=== PATIENT | male | born 1935 | race Caucasian/White ===

== ENCOUNTER → 2016-06-15 | Outpatient (CLI) | payer OTHER, BC ==
[~2016-06-15] MED LIST: ASPEC81 PO; ATOR-24 PO; DRV100 PO; GLC500 PO; LISI-725 PO
[2016-06-15 13:54] LABS: BLOOD UREA NITROGEN 24 mg/dl (7-18); BUN/CREATININE RATIO 19.8 (10-20); CARBON DIOXIDE 28 mmol/L (21-32); CHLORIDE 102 mmol/L (98-107); CHOLESTEROL 171 mg/dl (0-200); GLUCOSE 97 mg/dl (70-99); POTASSIUM 4.1 mmol/L (3.5-5.1); SODIUM 140 mmol/L (136-145)
[2016-06-15 14:00] LABS: HDL CHOLESTEROL 43 mg/dl; TRIGLYCERIDES 206 mg/dl (0-150); VERY LOW DENSITY LIPOPROT CALC 41 mg/dl
[2016-06-15 14:04] LABS: ESTIMATED AVERAGE GLUCOSE 140 mg/dl; HA1C FLAG Normal (Normal)
[2016-06-15 14:26] LABS: RATIO 12.3 mcg/mg (0-30.0)
--- NOTE | 2016-06-17 06:38 | CODING QUERY NO DIAGNOSIS ---
TREATMENT RENDERED WITHOUT A DIAGNOSIS To promote full compliance with coding requirements relating to patient care, physician participation is requested in all cases of wool buyer uncertainty. Please assist us with providing a diagnosis/symptom for the test(s) below: A diagnosis/symptom was not documented on your Order. A valid diagnosis/symptom is required to bill all insurances. Please remember that we are unable to code a diagnosis of rule out, probable, possible, questionable, or suspected. Tests that require a diagnosis: DOS: 06/15/16 * HEMOGLOBIN A1C DIAGNOSIS: * LDL DIRECT DIAGNOSIS: * LIPID PROFILE DIAGNOSIS: * PRP DIAGNOSIS: * MICROALBUM/CREAT RATIO DIAGNOSIS: Provider Signature: Date: Thank you [employer] [employer] [facility] Information Management Once completed, please kindly fax back to [phone] For questions please call [phone]
== END | disposition home or self-care (01) ==
LOC: C.LABSPEC 12:30
PROVIDERS: ATTEND Internal Medicine
DX: I10 Essential (primary) hypertension (principal); E78.5 Hyperlipidemia, unspecified; E11.9 Type 2 diabetes mellitus without complications

== ENCOUNTER → 2016-10-15 | Outpatient (CLI) | payer OTHER, BC ==
[2016-10-15 13:28] LABS: ALKALINE PHOSPHATASE 82 U/L (45-117); ALT/SGPT 26 U/L (12-78); AST/SGOT 16 U/L (15-37); BLOOD UREA NITROGEN 23 mg/dl (7-18); BUN/CREATININE RATIO 19.2 (10-20); CARBON DIOXIDE 27 mmol/L (21-32); CHLORIDE 104 mmol/L (98-107); CHOLESTEROL 160 mg/dl (0-200); CHOLESTEROL/HDL RATIO 3.9; GLUCOSE 123 mg/dl (70-99); HDL CHOLESTEROL 41 mg/dl; POTASSIUM 4.6 mmol/L (3.5-5.1); SODIUM 140 mmol/L (136-145); TRIGLYCERIDES 166 mg/dl (0-150); VERY LOW DENSITY LIPOPROT CALC 33 mg/dl
[2016-10-15 13:41] LABS: ESTIMATED AVERAGE GLUCOSE 151 mg/dl; HA1C FLAG Normal (Normal)
[2016-10-15 18:19] LABS: CALCIUM 9.6 mg/dl (8.5-10.1)
== END | disposition home or self-care (01) ==
LOC: C.LABSPEC 12:14
PROVIDERS: ATTEND Internal Medicine
DX: E66.09 Other obesity due to excess calories (principal); I10 Essential (primary) hypertension; E11.9 Type 2 diabetes mellitus without complications

== ENCOUNTER → 2017-02-18 | Outpatient (CLI) | payer OTHER, BC ==
[2017-02-18 13:49] LABS: ALT/SGPT 21 U/L (12-78); AST/SGOT 14 U/L (15-37); BLOOD UREA NITROGEN 20 mg/dl (7-18); BUN/CREATININE RATIO 19.3 (10-20); CALCIUM 9.7 mg/dl (8.5-10.1); CARBON DIOXIDE 28 mmol/L (21-32); CHLORIDE 103 mmol/L (98-107); CHOLESTEROL 149 mg/dl (0-200); CREATININE 1.05 mg/dl (0.60-1.40); GLUCOSE 119 mg/dl (70-99); POTASSIUM 4.1 mmol/L (3.5-5.1); SODIUM 138 mmol/L (136-145); TRIGLYCERIDES 220 mg/dl (0-150); VERY LOW DENSITY LIPOPROT CALC 44 mg/dl
[2017-02-18 13:51] LABS: ALKALINE PHOSPHATASE 80 U/L (45-117); CHOLESTEROL/HDL RATIO 3.5; HDL CHOLESTEROL 42 mg/dl
[2017-02-18 13:56] LABS: ESTIMATED AVERAGE GLUCOSE 140 mg/dl; HA1C FLAG Normal (Normal)
== END | disposition home or self-care (01) ==
LOC: C.LABSPEC 12:26
PROVIDERS: ATTEND Internal Medicine
DX: Z00.00 Encounter for general adult medical examination without abnormal findings (principal); E78.5 Hyperlipidemia, unspecified; E11.9 Type 2 diabetes mellitus without complications; E66.09 Other obesity due to excess calories

== ENCOUNTER → 2017-08-16 | Outpatient (CLI) | payer OTHER, BC ==
[2017-08-16 13:27] LABS: HEMOGLOBIN A1C 6.3 % (4.5-5.6)
[2017-08-16 14:12] LABS: BLOOD UREA NITROGEN 30 mg/dl (7-18); CALCIUM 9.7 mg/dl (8.5-10.1); CARBON DIOXIDE 26 mmol/L (21-32); CHOLESTEROL 119 mg/dl (0-200); CREATININE 1.22 mg/dl (0.60-1.40); GLUCOSE 103 mg/dl (70-99); POTASSIUM 4.2 mmol/L (3.5-5.1); SODIUM 139 mmol/L (136-145)
[2017-08-16 14:17] LABS: LDL CHOLESTEROL (DIRECT) 72 mg/dl
== END | disposition home or self-care (01) ==
LOC: C.LABSPEC 13:05
PROVIDERS: ATTEND Internal Medicine
DX: E78.5 Hyperlipidemia, unspecified (principal); I10 Essential (primary) hypertension; E11.9 Type 2 diabetes mellitus without complications

== ENCOUNTER 2023-12-28 17:12 | Observation (INO) ==
--- NOTE | 2023-12-28 17:18 | ED Triage Note ---
Date of Service December 28, 2023 Provider in Triage Author: Niles Dolan History of Present Illness This patient was briefly evaluated while in triage. An abbreviated physical exam was performed. This patient is a 88-year-old Male who presents to the ED for evaluation was here for outpatient CT scan for jaw pain POC and lab creatine was noted to be elevated (2.2) which is apparently new for him glucose also noted to be in 50s, recheck in triage 68 the MD group ordering the study was notified, and they asked that he be evaluated in the ED Physical Exam GENERAL: NAD CARDIOVASCULAR: RRR RESPIRATORY: CTA ABDOMEN: BS x 4. Nontender to palpation. Initial orders for labs and / or imaging were placed and patient was placed in the waiting area until a bed is available. Please see further documentation for the full ED course.
[2023-12-28 17:58] LABS: Eosinophils # (auto) 0.06 K/uL (0.00-0.50); Eosinophils % (auto) 0.6 %; Hematocrit (blood only) 45.2 % (42.0-52.0); Hemoglobin 14.9 g/dl (14.0-18.0); Immature Granulocytes # (auto) 0.03 K/uL (0.01-0.20); Immature Granulocytes % (auto) 0.3 %; Lymphocytes # (auto) 1.39 K/uL (1.20-3.40); Lymphocytes % (auto) 14.4 %; Mean Corpuscular Hemoglobin 30.5 pg (25.0-34.0); Mean Corpuscular Volume 92.6 fL (80.0-100.0); Mean Platelet Volume 9.7 fL (9.4-12.4); Monocytes # (auto) 1.35 K/uL (0.11-0.59); Neutrophils # (auto) 6.74 K/uL (1.40-6.50); Neutrophils % (auto) 69.7 %; Platelet Count 281 K/uL (130-400); RDW Coefficient of Variation 13.1 % (11.5-14.5); Red Blood Count 4.88 M/uL (4.70-6.10); White Blood Count 9.67 K/ul (4.8-10.8)
[2023-12-28 18:17] LABS: Alanine Aminotransferase 14 U/L (7-52); Albumin Globulin Ratio 1.2 (0.9-2); Albumin Level 4.6 gm/dl (3.4-5.0); Alkaline Phosphatase 78 U/L (34-104); Anion Gap 14 (3-11); BUN Creatinine Ratio 20.1 (10-20); Bilirubin,Total 0.4 mg/dl (0.2-1.0); Blood Urea Nitrogen 45 mg/dl (6-23); Calcium 10.2 mg/dl (8.6-10.3); Carbon Dioxide 24 mmol/L (21-32); Chloride 97 mmol/L (98-107); Est GFR (African American) 29.7 ml/min; Est GFR (Non-African American) 25.6 ml/min; Globulin 3.7 gm/dl (2.5-4.0); Glucose 80 mg/dl (70-99(Fasting)); Sodium 135 mmol/L (136-145); Total Protein 8.3 gm/dl (6.0-8.3)
--- NOTE | 2023-12-28 19:13 | Emergency Department Note ---
Impression & Plan CARLY (acute kidney injury), Jaw pain, Acute dehydration, Hypomagnesemia ED Provider Note NAME: CHARBEL COLLAZO AGE: 88 SEX: M : 1935 ARRIVES VIA: Walk-In INFORMANT: [Patient] ED PROVIDER(S): [Gael Maddox MD] CHIEF COMPLAINT: Abnormal laboratories HISTORY OF PRESENT ILLNESS: The patient is an 88-year-old male who presents to the ER with abnormal creatinine values. The patient has had 3 days of anterior right jaw pain. He went to his doctor's office and a CT of the jaw was ordered. At CT, his creatinine was found to be high, this was far above his baseline, he was referred to the ER. The patient has not had flank pain or abdominal pain. No swelling of his legs. He does admit to decreased intake because of the jaw pain. No lightheadedness or dizziness. He is not short of breath. No fever. The patient does not believe his mouth, tongue or jaw appears swollen when looking in the mirror. PMHx/PSHx/Social Hx: See Below PHYSICAL EXAM: GENERAL: Patient is in no acute distress. HEENT: No acute trauma, normocephalic atraumatic, mucous membranes moist, no nasal congestion. Very poor dentition with multiple eroded teeth and cavities. Several teeth have already been removed. Patient does not have any swelling to the floor the mouth. He is sore to palpate the right anterior mandible. There is no abscess present by my exam. NECK: No stridor, no adenopathy, no meningismus, trachea is midline. LUNGS: Clear to auscultation bilaterally, no wheeze, no rhonchi, breath sounds equal. Breath sounds diminished bilaterally HEART: Without murmurs gallops or rubs, occasional extra beat heard. Regular rate ABDOMEN: Soft, nontender, no peritonitis. EXTREMITIES: No cyanosis, full range of motion of all the joints without pain or difficulty. NEUROLOGIC: Oriented x 3, no acute motor or sensory deficits, no focal weakness. SKIN: No jaundice, no diaphoresis. DIFFERENTIAL DIAGNOSIS: Acute renal failure, dehydration, renal obstruction, medication reaction, UTI, among others. EMERGENCY DEPARTMENT PROCEDURES: MEDICAL DECISION MAKING: There is no leukocytosis or concerning anemia. There is a normal platelet count. There is evidence for acute kidney injury/dehydration with a creatinine of 2.24. There is a subtle anion gap. Sodium slightly low at 135. Magnesium is low at 1.5. No worrisome liver enzyme elevation. Urinalysis result is pending. Abdominal and pelvis CT does not show any urinary obstruction or acute surgical process. ECG showed a sinus rhythm, no ischemia or dysrhythmia. On exam, the patient was not toxic, he was not febrile. He did not have abdominal or flank pain. There was no pedal edema. Clinically, I did not find any dental abscess across the lower jaw. There was no swelling to the floor of the mouth. The patient appears to have acute kidney injury/dehydration. This is likely result of poor intake as he has had a sore jaw and difficulty eating. Based on his exam, I suspect he has jaw pain from his poor dentition. The patient received a liter of IV saline for hydration. The patient is in need of a hospital stay given the acute kidney injury. He requires further hydration and electrolyte replacement. I did speak with the patient and case management. The on-call hospitalist was consulted. Prior/Outside records/notes reviewed: None ECG per my interpretation: Indication was abnormal laboratories. The ECG shows a sinus rhythm with some PACs. The rate is 85. There is no acute ST elevation, no PVCs. The QTc is 421. Continuous Cardiac Monitoring per my interpretation: An order was placed for continuous cardiac monitoring. The monitor shows a rate of 94 with sinus rhythm with PACs. Imaging/x-ray results per my interpretation: Chronic Medical/Social conditions affecting care: Advanced age. Care/Management discussed with: Case management, the on-call hospitalist. Level of care consideration(s): After review of the information above and other included data: --I believe the patient requires escalation of care to admission DISPOSITION: Admission Past Med/Surg History Problem List Hypomagnesemia (Acute) Acute dehydration (Acute) Jaw pain (Acute) CARLY (acute kidney injury) (Acute) Jaw pain CARLY (acute kidney injury) Medical History Hyperlipidemia Hypertension Diabetes Social History Smoking Status: Never smoker Hx Alcohol Use: No Hx Substance Use: No Preferred Language: Tajik Communication Ability: Effective Special Needs Teacher Required: No Beliefs That Will Affect Care: None Current Living Situation: Alone Current Living Situation Comment: resides at [facility]. Other Information That Helps Us Care for You: No Feels Safe at Home: Yes Safety Concerns: Feels Safe At This Time Assistive Devices: None Allergies Allergies Allergy/AdvReac Type Severity Reaction Status Date / Time pollen extracts Allergy Intermediate HAYFEVER Verified 12/28/23 20:51 SYMPTOMS Home Meds Home Medications Medication Instructions Recorded Confirmed acetaminophen 325 mg tablet 650 mg PO DIRECTED PRN 12/28/23 12/28/23 (Tylenol) PAIN/FEVER atorvastatin 40 mg tablet 40 mg PO DAILY 12/28/23 12/28/23 fluticasone propionate 50 2 spray intranasal DAILY 12/28/23 12/28/23 mcg/actuation nasal spray,suspension gemfibrozil 600 mg tablet 600 mg PO BID 12/28/23 12/28/23 glyburide 1.25 mg tablet 1.25 mg PO BID 12/28/23 12/28/23 lisinopril 20 mg tablet 20 mg PO DAILY 12/28/23 12/28/23 metformin 1,000 mg tablet 1,000 mg PO BID 12/28/23 12/28/23 metoprolol succinate 25 mg 25 mg PO DAILY 12/28/23 12/28/23 tablet,extended release 24 hr triamterene 37.5 0.5 tab PO DAILY 12/28/23 12/28/23 mg-hydrochlorothiazide 25 mg tablet Results & Data (ED) Vital Signs Vital Signs - 24 hr 12/28/23 17:17 12/28/23 19:45 Temperature 36.4 C L Temperature Source Oral Pulse Rate 85 Respiratory Rate 94 H 20 Respiratory Effort / Characteristics Non-Labored Spontaneous Respiratory Depth Normal Respiratory Pattern Regular Blood Pressure 110/65 Blood Pressure Mean 80 Pulse Oximetry 95 Oxygen Delivery Method Room Air Sepsis Recent Fever Within 48 Hours No Sepsis New/Unexplained Change in Mental Status N/A Sepsis Action Taken by Nursing No Action Required Home Medications Current Medication List: was personally reviewed by me Laboratory Data Attestation: I reviewed the patient's lab results. 12/28/23 Unknown 12/28/23 Unknown Lab Results 12/28/23 12/28/23 12/28/23 Range/Units 17:21 17:43 19:29 Potassium (3.5-5.1) mmol/L POC Glucose 68 L* 83 126 H (70-99) mg/dl Phosphorus (2.5-4.9) mg/dl Magnesium (1.7-2.4) mg/dl AST (13-39) U/L 12/28/23 Range/Units 19:35 Potassium 4.3 (3.5-5.1) mmol/L POC Glucose (70-99) mg/dl Phosphorus 3.3 (2.5-4.9) mg/dl Magnesium 1.5 L (1.7-2.4) mg/dl AST 18 (13-39) U/L Administered Medications Acetaminophen (Acetaminophen 325 Mg Tab) 650 mg PO Q4H PRN PRN Reason: Pain or Fever Stop: 01/27/24 22:34 Last Admin: 12/28/23 23:18 Dose: 650 mg Documented By: JEZ Lactated Ringer's (Lr) 1,000 mls @ 125 mls/hr IV .Q8H [facility] Stop: 12/29/23 14:59 Last Admin: 12/28/23 23:23 Dose: 125 mls/hr Documented By: JEZ Magnesium Sulfate/Dextrose (Magnesium Sulfate / D5w) 1 gm in 100 mls @ 50 mls/hr IV Q2H JULISSA Stop: 12/29/23 03:14 Last Admin: 12/29/23 01:10 Dose: 50 mls/hr Documented By: Infusion: 12/29/23 01:10 Dose: Infused Documented By: Admin: 12/28/23 23:26 Dose: 50 mls/hr Documented By: JEZ Discontinued Medications Sodium Chloride (Nss) 1,000 mls @ 999 mls/hr IV .Q1H1M ONE Stop: 12/28/23 19:58 Last Infusion: 12/28/23 20:57 Dose: Infused Documented By: Admin: 12/28/23 19:34 Dose: 999 mls/hr Documented By: RED Imaging Data Radiologist's Impression: Abdomen/Pelvis CT 12/28/23 18:50 Exam(s): CT ABDOMEN + PELVIS Without Contrast EXAM: CT Abdomen and Pelvis Without Intravenous Contrast CLINICAL HISTORY: Reason for exam: Possible urinary obstruction. TECHNIQUE: Axial computed tomography images of the abdomen and pelvis without intravenous contrast. CTDI is 26 mGy and DLP is 1177 mGy-cm. Automated exposure control was utilized for the study. A dose lowering technique was utilized adhering to the principles of ALARA. COMPARISON: No relevant prior studies available. FINDINGS: Lung bases: Unremarkable. No mass. No consolidation. ABDOMEN: Liver: Unremarkable. Gallbladder and bile ducts: There is a 6 mm calcific gallstone in the dependent portion of the gallbladder. No wall thickening or surrounding inflammation is visible. No biliary duct dilation or choledocholithiasis. Pancreas: Unremarkable. No ductal dilation. Spleen: Unremarkable. No splenomegaly. Adrenals: Unremarkable. No mass. Kidneys and ureters: Slight perinephric stranding around both kidneys is nonspecific but can be seen in renal insufficiency. The kidneys are otherwise unremarkable. No hydronephrosis or ureterolithiasis is seen. Stomach and bowel: Unremarkable. No obstruction. No mucosal thickening. PELVIS: Appendix: The appendix is normal. Bowel loops are nondilated. No acute inflammatory changes are seen involving the bowel. Bladder: The urinary bladder is only partially distended but unremarkable. No stones. Reproductive: Unremarkable as visualized. ABDOMEN and PELVIS: Intraperitoneal space: Unremarkable. No free air. No significant fluid collection. Bones/joints: Mild osteoarthritic changes in both hips. Mild multilevel degenerative changes throughout the spine. There are chronic bilateral pars defects at L5 without spondylolisthesis. No acute fracture or subluxation is seen. Soft tissues: Unremarkable. Vasculature: The abdominal aorta is heavily calcified but nondilated. Lymph nodes: Unremarkable. No enlarged lymph nodes. IMPRESSION: 1. Slight perinephric stranding around both kidneys is nonspecific but can be seen in renal insufficiency. The kidneys are otherwise unremarkable. No hydronephrosis or ureterolithiasis is seen. 2. The appendix is normal. Bowel loops are nondilated. No acute inflammatory changes are seen involving the bowel. 3. There is a 6 mm calcific gallstone in the dependent portion of the gallbladder. No wall thickening or surrounding inflammation is visible. No biliary duct dilation or choledocholithiasis. Electronically signed by: Cuong Min MD 12/28/23 20:11 PM Discharge Plan Visit Data Chief Complaint: Abnormal Labs/Diagnostic Testing Stated Complaint: ABN LABS/HIGH CREATINE ED Provider: Gael Maddox Discharge Problem: CARLY (acute kidney injury), Jaw pain, Acute dehydration, Hypomagnesemia Patient Disposition: Admitted As Inpatient Condition: Good
[2023-12-28] MEDS: SODIUM CHLORIDE 0.9% 1,000 ML IV ONE (19:34)
--- NOTE | 2023-12-28 19:49 | History & Physical Report ---
Date of Service December 28, 2023 Assessment & Plan (1) CARLY (acute kidney injury): Plan: 88yo male with history of HTN, DM and HLP presenting with CARLY. BUN=45, Cr=2.24. Patient reports decreased UOP over the last day. He also states he takes Ibuprofen regularly - likely 4 tablets daily. CARLY likely multifactorial - dehydration/pre-renal azotemia as well as medication effects - patient taking Ibuprofen and is on Lisinopril, Triamterene/HCTZ. K=4.3, patient does have an elevated anion gap at 14 -Admit to medical with telemetry -Continue LR at 125mL/hr x 2 liters -Check urine Na and Cr for FeNA calculation -Awaiting UA -Avoid nephrotoxic agents -Renal dosing where needed -Repeat chemistry in AM -Will hold Lisinopril and Triamterene/HCTZ (2) Jaw pain: Plan: Patient with several days of worsening lower jaw pain interfering with PO intake. He has multiple mandibular teeth broken to the gumline, tenderness with palpation of the gums but no obvious abscess on physical exam. No evidence of infection on workup thus far -CT face -OMFS consultation if warranted -Tylenol PRN pain Plan Chronic Medical Conditions: Hyperlipidemia - chronic -Continue Atorvastatin -Hold Gemfibrozil Hypertension - chronic -Holding Lisinopril and Triamterene/HCTZ -Continue Metoprolol DM - patient on oral agents, Metformin and Glyburide. Last HgbA1C in our system 7.3 on 02/26/21. Patient follows with [facility] -Hold oral agents -ISS F/E/N - LR at 125mL/hr x 2L, will replete Mg with 2gm IV, Renal diet for now Ppx - SCDs Code - DNR/DNI per discussion with patient Dispo - Admit to medical with telemetry History of Present Illness Chief Complaint: CARLY Primary Care Provider: Martha Salazar PA-C Alex Lomeli is an 88yo male with history of DM presenting with jaw pain. Patient reports 3 days of lower jaw pain - no trauma or recently broken teeth. He has not been eating much secondary to jaw pain. He reports decreased urine output. He has been taking 4 tablets of Ibuprofen daily for the last several days. In the ER patient is afebrile, HD stable, NAD ER Course: NSS x 1L Allergies Allergy/AdvReac Type Severity Reaction Status Date / Time pollen extracts Allergy Intermediate HAYFEVER Verified 12/28/23 20:51 SYMPTOMS Home Medications Medication Instructions Recorded Confirmed Type acetaminophen 325 mg tablet 650 mg PO DIRECTED PRN 12/28/23 12/28/23 History (Tylenol) PAIN/FEVER atorvastatin 40 mg tablet 40 mg PO DAILY 12/28/23 12/28/23 History fluticasone propionate 50 2 spray intranasal DAILY 12/28/23 12/28/23 History mcg/actuation nasal spray,suspension gemfibrozil 600 mg tablet 600 mg PO BID 12/28/23 12/28/23 History glyburide 1.25 mg tablet 1.25 mg PO BID 12/28/23 12/28/23 History lisinopril 20 mg tablet 20 mg PO DAILY 12/28/23 12/28/23 History metformin 1,000 mg tablet 1,000 mg PO BID 12/28/23 12/28/23 History metoprolol succinate 25 mg 25 mg PO DAILY 12/28/23 12/28/23 History tablet,extended release 24 hr triamterene 37.5 0.5 tab PO DAILY 12/28/23 12/28/23 History mg-hydrochlorothiazide 25 mg tablet Past Med/Surg History Problem List (Updated 12/28/23 @ 21:16 by Lorelei Min DO) Jaw pain CARLY (acute kidney injury) Medical History Hyperlipidemia Hypertension Diabetes Social History Smoking Status: Never smoker Feels Safe at Home: Yes Review of Systems Review of Systems: All systems reviewed & are unremarkable except as noted in HPI & below Physical Exam Physical Exam: General: patient resting comfortably, NAD, non-toxic in appearance, AA&O x 4, slow to answer questions Skin: warm, dry, intact, no rashes or lesions HEENT: NC/AT, PERRL, EOMI, anicteric sclera, conjunctiva without injection, external ear normal to inspection and nontender, nares patent, moist mucus membranes, poor dentition, multiple mandibular teeth broken at gumline, some tenderness with palpation of gums, no fluctuance or purulence, no oropharyngeal lesions, neck supple, trachea midline, no LAD, no thyromegaly, no JVD Heart: +S1/S2, regular, no m/r/g Lungs: equal air entry bilaterally, no rales/rhonchi/wheezes Abd: +BS, soft, NT/ND, no masses/organomegaly/ascites Ext: warm, 2+ pulses in UE/LE bilaterally, no clubbing/cyanosis or edema Neuro: nonfocal, patient AA&O x 4, speech intact, no facial droop, moving all extremities on command with equal strength 5/5 Results & Data Results & Data Vital Signs (Past 12 Hours) Vital Signs Temp Pulse Resp BP Pulse Ox O2 Del Method 12/28/23 17:17 36.4 C L 85 94 H 110/65 95 Room Air Laboratory Results Laboratory Results WBC 9.67 K/ul (4.8-10.8) 12/28/23 Unknown RBC 4.88 M/uL (4.70-6.10) 12/28/23 Unknown Hgb 14.9 g/dl (14.0-18.0) 12/28/23 Unknown Hct 45.2 % (42.0-52.0) 12/28/23 Unknown MCV 92.6 fL (80.0-100.0) 12/28/23 Unknown MCH 30.5 pg (25.0-34.0) 12/28/23 Unknown MCHC 33.0 g/dL (32.0-36.0) 12/28/23 Unknown RDW Std Deviation 44.0 fL (36.4-46.3) 12/28/23 Unknown RDW Coeff of Ruel 13.1 % (11.5-14.5) 12/28/23 Unknown Plt Count 281 K/uL (130-400) 12/28/23 Unknown MPV 9.7 fL (9.4-12.4) 12/28/23 Unknown Immature Gran % (Auto) 0.3 % 12/28/23 Unknown Neut % (Auto) 69.7 % 12/28/23 Unknown Lymph % (Auto) 14.4 % 12/28/23 Unknown Hickman % (Auto) 14.0 % 12/28/23 Unknown Eos % (Auto) 0.6 % 12/28/23 Unknown Baso % (Auto) 1.0 % 12/28/23 Unknown Neut # (Auto) 6.74 K/uL (1.40-6.50) H 12/28/23 Unknown Lymph # (Auto) 1.39 K/uL (1.20-3.40) 12/28/23 Unknown Hickman # (Auto) 1.35 K/uL (0.11-0.59) H 12/28/23 Unknown Eos # (Auto) 0.06 K/uL (0.00-0.50) 12/28/23 Unknown Baso # (Auto) 0.10 K/uL (0.00-0.20) 12/28/23 Unknown Immature Gran # (Auto) 0.03 K/uL (0.01-0.20) 12/28/23 Unknown Sodium 135 mmol/L (136-145) L 12/28/23 Unknown Potassium TNP 12/28/23 Unknown Chloride 97 mmol/L (98-107) L 12/28/23 Unknown Carbon Dioxide 24 mmol/L (21-32) 12/28/23 Unknown Anion Gap 14 (3-11) H 12/28/23 Unknown BUN 45 mg/dl (6-23) H 12/28/23 Unknown Creatinine 2.24 mg/dl (0.6-1.4) H 12/28/23 Unknown Est Cr Clr Drug Dosing 26.0 ml/min 12/28/23 Unknown Est GFR ( Amer) 29.7 ml/min 12/28/23 Unknown Est GFR (Non-Af Amer) 25.6 ml/min 12/28/23 Unknown BUN/Creatinine Ratio 20.1 (10-20) H 12/28/23 Unknown Glucose 80 mg/dl (70-99(Fasting)) 12/28/23 Unknown POC Glucose 126 mg/dl (70-99) H 12/28/23 19:29 Calcium 10.2 mg/dl (8.6-10.3) 12/28/23 Unknown Magnesium 1.5 mg/dl (1.7-2.4) L 12/28/23 19:35 Total Bilirubin 0.4 mg/dl (0.2-1.0) 12/28/23 Unknown AST TNP 12/28/23 Unknown ALT 14 U/L (7-52) 12/28/23 Unknown Alkaline Phosphatase 78 U/L (34-104) 12/28/23 Unknown Total Protein 8.3 gm/dl (6.0-8.3) 12/28/23 Unknown Albumin 4.6 gm/dl (3.4-5.0) 12/28/23 Unknown Globulin 3.7 gm/dl (2.5-4.0) 12/28/23 Unknown Albumin/Globulin Ratio 1.2 (0.9-2) 12/28/23 Unknown Impressions Abdomen/Pelvis CT 12/28/23 18:50 Exam(s): CT ABDOMEN + PELVIS Without Contrast EXAM: CT Abdomen and Pelvis Without Intravenous Contrast CLINICAL HISTORY: Reason for exam: Possible urinary obstruction. TECHNIQUE: Axial computed tomography images of the abdomen and pelvis without intravenous contrast. CTDI is 26 mGy and DLP is 1177 mGy-cm. Automated exposure control was utilized for the study. A dose lowering technique was utilized adhering to the principles of ALARA. COMPARISON: No relevant prior studies available. FINDINGS: Lung bases: Unremarkable. No mass. No consolidation. ABDOMEN: Liver: Unremarkable. Gallbladder and bile ducts: There is a 6 mm calcific gallstone in the dependent portion of the gallbladder. No wall thickening or surrounding inflammation is visible. No biliary duct dilation or choledocholithiasis. Pancreas: Unremarkable. No ductal dilation. Spleen: Unremarkable. No splenomegaly. Adrenals: Unremarkable. No mass. Kidneys and ureters: Slight perinephric stranding around both kidneys is nonspecific but can be seen in renal insufficiency. The kidneys are otherwise unremarkable. No hydronephrosis or ureterolithiasis is seen. Stomach and bowel: Unremarkable. No obstruction. No mucosal thickening. PELVIS: Appendix: The appendix is normal. Bowel loops are nondilated. No acute inflammatory changes are seen involving the bowel. Bladder: The urinary bladder is only partially distended but unremarkable. No stones. Reproductive: Unremarkable as visualized. ABDOMEN and PELVIS: Intraperitoneal space: Unremarkable. No free air. No significant fluid collection. Bones/joints: Mild osteoarthritic changes in both hips. Mild multilevel degenerative changes throughout the spine. There are chronic bilateral pars defects at L5 without spondylolisthesis. No acute fracture or subluxation is seen. Soft tissues: Unremarkable. Vasculature: The abdominal aorta is heavily calcified but nondilated. Lymph nodes: Unremarkable. No enlarged lymph nodes. IMPRESSION: 1. Slight perinephric stranding around both kidneys is nonspecific but can be seen in renal insufficiency. The kidneys are otherwise unremarkable. No hydronephrosis or ureterolithiasis is seen. 2. The appendix is normal. Bowel loops are nondilated. No acute inflammatory changes are seen involving the bowel. 3. There is a 6 mm calcific gallstone in the dependent portion of the gallbladder. No wall thickening or surrounding inflammation is visible. No biliary duct dilation or choledocholithiasis. Electronically signed by: Cuong Min MD 12/28/23 20:11 PM ECG Additional Comments: EKG per my interpretation reveals SR with premature supraventricular complexes, rate=85, no acute ischemic changes PG Care Time/CCT Total # of Minutes Spent Total Time Spent with Patient: Total time spent is greater than 50% in coordination of care (as documented) at patient's floor/unit and/or counseling patient: Coding Level of Care Code 45096 INT INP/OBS CARE 2/55MIN Diagnoses CARLY (acute kidney injury) N17.9 Jaw pain R68.84
--- NOTE | 2023-12-28 20:11 | CT Scan Report ---
Exam(s): CT ABDOMEN + PELVIS Without Contrast EXAM: CT Abdomen and Pelvis Without Intravenous Contrast CLINICAL HISTORY: Reason for exam: Possible urinary obstruction. TECHNIQUE: Axial computed tomography images of the abdomen and pelvis without intravenous contrast. CTDI is 26 mGy and DLP is 1177 mGy-cm. Automated exposure control was utilized for the study. A dose lowering technique was utilized adhering to the principles of ALARA. COMPARISON: No relevant prior studies available. FINDINGS: Lung bases: Unremarkable. No mass. No consolidation. ABDOMEN: Liver: Unremarkable. Gallbladder and bile ducts: There is a 6 mm calcific gallstone in the dependent portion of the gallbladder. No wall thickening or surrounding inflammation is visible. No biliary duct dilation or choledocholithiasis. Pancreas: Unremarkable. No ductal dilation. Spleen: Unremarkable. No splenomegaly. Adrenals: Unremarkable. No mass. Kidneys and ureters: Slight perinephric stranding around both kidneys is nonspecific but can be seen in renal insufficiency. The kidneys are otherwise unremarkable. No hydronephrosis or ureterolithiasis is seen. Stomach and bowel: Unremarkable. No obstruction. No mucosal thickening. PELVIS: Appendix: The appendix is normal. Bowel loops are nondilated. No acute inflammatory changes are seen involving the bowel. Bladder: The urinary bladder is only partially distended but unremarkable. No stones. Reproductive: Unremarkable as visualized. ABDOMEN and PELVIS: Intraperitoneal space: Unremarkable. No free air. No significant fluid collection. Bones/joints: Mild osteoarthritic changes in both hips. Mild multilevel degenerative changes throughout the spine. There are chronic bilateral pars defects at L5 without spondylolisthesis. No acute fracture or subluxation is seen. Soft tissues: Unremarkable. Vasculature: The abdominal aorta is heavily calcified but nondilated. Lymph nodes: Unremarkable. No enlarged lymph nodes. IMPRESSION: 1. Slight perinephric stranding around both kidneys is nonspecific but can be seen in renal insufficiency. The kidneys are otherwise unremarkable. No hydronephrosis or ureterolithiasis is seen. 2. The appendix is normal. Bowel loops are nondilated. No acute inflammatory changes are seen involving the bowel. 3. There is a 6 mm calcific gallstone in the dependent portion of the gallbladder. No wall thickening or surrounding inflammation is visible. No biliary duct dilation or choledocholithiasis. Electronically signed by: Cuong Min MD 12/28/23 20:11 PM
[2023-12-28 20:15] LABS: Magnesium 1.5 mg/dl (1.7-2.4); Potassium 4.3 mmol/L (3.5-5.1)
[2023-12-28] MEDS ORDERED: DEXTROSE 50% 50 ML SYRINGE IV PRN (22:35)
[2023-12-28] MEDS ORDERED: ONDANSETRON INJ 2 MG/ML 2 ML VIAL IV PRN (22:35)
[2023-12-28] MEDS ORDERED: GLUCOSE 10 TAB/TUBE PO PRN (22:35)
[2023-12-28] MEDS ORDERED: CARBOHYDRATES FOR HYPOGLYCEMIA PO PRN (22:35)
[2023-12-28] MEDS ORDERED: GLUCOSE 40% GEL 15 GM TUBE PO PRN (22:35)
[2023-12-28] MEDS ORDERED: GLUCAGON FOR INJ 1 MG VIAL SQ PRN (22:35)
[2023-12-28] MEDS: ACETAMINOPHEN 325 MG TAB PO PRN (23:18)
[2023-12-28] MEDS: LACTATED RINGER'S 1,000 ML IV SCH (23:23)
[2023-12-28] MEDS: MAGNESIUM SULFATE / D5W 1 GM/100 ML BAG IV SCH (23:26)
--- NOTE | 2023-12-28 23:42 | CT Scan Report ---
Exam(s): CT FACIAL Without Contrast EXAM: CT Maxillofacial Without Intravenous Contrast CLINICAL HISTORY: Reason for exam: jaw pain,. TECHNIQUE: Axial computed tomography images of the face without intravenous contrast. CTDI is 36.26 mGy and DLP is 726.26 mGy-cm. Automated exposure control was utilized for the study. A dose lowering technique was utilized adhering to the principles of ALARA. COMPARISON: No relevant prior studies available. FINDINGS: Bones/joints: The mandible is intact and normally positioned. No acute fracture or dislocation is seen. Soft tissues: Unremarkable. Orbits: Unremarkable. Sinuses: Trace amount of chronic appearing mucosal thickening in both maxillary sinuses and opacification of on the right ethmoid air cells. The remaining paranasal sinuses are within normal limits. No air-fluid levels. Dental: Dentition is poor. Extensive dental caries are present. No periodontal osteolysis or abscess is identified. IMPRESSION: Dentition is poor. Extensive dental caries are present. No periodontal osteolysis or periodontal abscess is identified. No facial fracture is identified. Electronically signed by: Cuong Min MD 12/28/23 23:40 PM
[2023-12-29 00:58] LABS: Phosphorus 3.3 mg/dl (2.5-4.9)
[2023-12-29 01:25] LABS: Appearance Urine Clear (Clear); Bacteria Urine Automated None Seen (None Seen); Bilirubin Urine Negative (Negative); Blood Urine Negative (Negative); Cast Urine Automated >20 /lpf (0-2); Color Urine Yellow; Epithelial Cell Urine Auto 0-2 /hpf (0-2); Glucose Urine UA Negative (Negative); Ketones Urine Trace (Negative); Leukocyte Esterase Urine Negative (Negative); Mucus Urine Present (None Prsent); Nitrite Urine Negative (Negative); Protein Urine Trace (Negative); RBC Urine Automated 0-2 /hpf (0-2); Urobilinogen Urine Negative (Negative); WBC Urine Automated 0-5 /hpf (0-5)
[2023-12-29 01:31] LABS: Creatinine Urine Random 175.9 mg/dl
[2023-12-29 07:29] LABS: BUN Creatinine Ratio 26.6 (10-20); Creatinine Clr Calc Pharmacy 36.8 ml/min; Est GFR (African American) 45.2 ml/min; Potassium 3.7 mmol/L (3.5-5.1)
[2023-12-29] MEDS: METOPROLOL SUCC 25MG EXT REL TAB PO SCH (07:34)
[2023-12-29] MEDS: ATORVASTATIN 40 MG TAB PO SCH (07:34)
[2023-12-29] MEDS: FLUTICASONE PROPIONATE NA SPR 16 GM BTL SCH (07:34)
[2023-12-29] MEDS: INSULIN ASPART PER UNIT CHARGE SC SCH (08:59)
[2023-12-29] MEDS: LANTUS PER UNIT CHARGE SQ SCH (09:02)
[2023-12-29] MEDS: AMOXICILLIN/CLAVULANATE 875 MG TAB PO SCH (13:50)
--- NOTE | 2023-12-29 16:50 | Oral/Maxillofacial Consult ---
Date of Consultation December 29, 2023 Assessment & Plan (1) Acute dehydration: (2) Jaw pain: (3) Erosion of teeth, extending into dentine: (4) Dentin sensitivity: (5) Bruxism (teeth grinding): History of Present Illness Attending Physician: Jocelyn Tracey MD History of Present Illness Oral Maxillofacial Surgery Exam Present Complaint: I have pain from my lower front eye teeth Symptoms have been ongoing for a while. I dentist told me to have all my lower teeth removed, placed 2 implants and get a lower implant supported denture Can not eat or take fluids due to tooth pain--better now No swelling noted Oral Exam: Finding-- Ed has very worn dentition nut good gum support and unbelievable bone. His bone is very thick and if extraction can be avoided that would be his best option. His pain and sensitivity is intermittent, no pain on palpation, no swelling or abscess noted. The posterior teeth look to be able to be saved with new restorations the 22 and 27 will need possible root canal and dome filling for an overdenture. I suggested he call Dr Camp in [place] for a second opinion regarding his options. Imaging: No abscess noted Periapical lesion associated with # 22 and 27 Worn teeth, very thick bone, small bilateral nohelia and exostosis. Soft tissue: The floor of the mouth, tongue, hard/soft palate, posterior pharyngeal area all with in normal limits, no pathology or abnormal findings noted. No lesions noted that require follow up or Bx. Oral Care: Overall oral care is good Occlusion: Class I worn dentition TMJ exam: No pop, clicking, pain, good ROM, No history of TMJ injury or dysfunction Periodontal exam: Healthy gingival tissue without evidence of periodontal pathology. Head/Neck exam: Neck is supple, FROM, Able to extend and flex neck w/o difficulty, no masses, no abnormalities, no airway issues Treatment Plan: I suggested that he get a second opinion regarding other option on treating his lower teeth besides extraction, alveoplasty,implants and denture. I reviewed the treatment options with the patient. Understanding was expressed. MUST GET SECOND OPINION TO DISCUSS OTHER OPTIONS REGARDING SENSITIVITY OF TEETH 22 AND 27 Allergies Allergy/AdvReac Type Severity Reaction Status Date / Time pollen extracts Allergy Intermediate HAYFEVER Verified 12/28/23 20:51 SYMPTOMS Home Medications Medication Instructions Recorded Confirmed Type acetaminophen 325 mg tablet 650 mg PO DIRECTED PRN 12/28/23 12/28/23 History (Tylenol) PAIN/FEVER atorvastatin 40 mg tablet 40 mg PO DAILY 12/28/23 12/28/23 History fluticasone propionate 50 2 spray intranasal DAILY 12/28/23 12/28/23 History mcg/actuation nasal spray,suspension gemfibrozil 600 mg tablet 600 mg PO BID 12/28/23 12/28/23 History glyburide 1.25 mg tablet 1.25 mg PO BID 12/28/23 12/28/23 History lisinopril 20 mg tablet 20 mg PO DAILY 12/28/23 12/28/23 History metformin 1,000 mg tablet 1,000 mg PO BID 12/28/23 12/28/23 History metoprolol succinate 25 mg 25 mg PO DAILY 12/28/23 12/28/23 History tablet,extended release 24 hr triamterene 37.5 0.5 tab PO DAILY 12/28/23 12/28/23 History mg-hydrochlorothiazide 25 mg tablet Patient History Medical History Hyperlipidemia Hypertension Diabetes Social History Smoking Status: Never smoker Hx Alcohol Use: No Hx Substance Use: No Preferred Language: German Communication Ability: Effective Item Processing Clerk Required: No Beliefs That Will Affect Care: None Current Living Situation: Alone Current Living Situation Comment: resides at [facility]. Feels Safe at Home: Yes Assistive Devices: None Results & Data Vital Signs (Past 12 Hours) Vital Signs Temp Pulse Pulse Resp BP Pulse Ox O2 Del Method 12/29/23 13:49 71 12/29/23 12:05 36.5 C 70 17 97/58 L 94 Room Air 12/29/23 07:33 36.5 C 79 16 102/62 94 Room Air 12/29/23 07:30 Room Air 12/29/23 07:00 75 PG Care Time/CCT Total # of Minutes Spent Total Time Spent with Patient: Total time spent is greater than 50% in coordination of care (as documented) at patient's floor/unit and/or counseling patient: Coding Level of Care Code 65028 IN/OBS CONSULT LVL 2,35M Diagnoses Acute dehydration E86.0 Jaw pain R68.84 Erosion of teeth, extending into dentine K03.2 Dentin sensitivity K03.89 Bruxism (teeth grinding) F45.8
--- NOTE | 2023-12-29 17:58 | Discharge Summary ---
Discharge Summary Date of Service December 29, 2023 Principal Dx & Hospital Course #1 = Principal Diagnosis (1) CARLY (acute kidney injury): 88yo male with history of HTN, DM and HLP presenting with CARLY. BUN=45, Cr=2.24. Patient reports decreased UOP over the last day. He also states he takes Ibuprofen regularly - likely 4 tablets daily. CARLY likely multifactorial - dehydration/pre-renal azotemia as well as medication effects - patient taking Ibuprofen and is on Lisinopril, Triamterene/HCTZ. K=4.3, patient does have an elevated anion gap at 14 -Admit to medical with telemetry -Continue LR at 125mL/hr x 2 liters -Check urine Na and Cr for FeNA calculation -Awaiting UA -Avoid nephrotoxic agents -Renal dosing where needed -Repeat chemistry in AM -Will hold Lisinopril and Triamterene/HCTZ (2) Jaw pain: Patient with several days of worsening lower jaw pain interfering with PO intake. He has multiple mandibular teeth broken to the gumline, tenderness with palpation of the gums but no obvious abscess on physical exam. No evidence of infection on workup thus far -CT face -OMFS consultation if warranted -Tylenol PRN pain Plan Chronic Medical Conditions: Hyperlipidemia - chronic -Continue Atorvastatin -Hold Gemfibrozil Hypertension - chronic -Holding Lisinopril and Triamterene/HCTZ -Continue Metoprolol DM - patient on oral agents, Metformin and Glyburide. Last HgbA1C in our system 7.3 on 02/26/21. Patient follows with [facility] -Hold oral agents -ISS F/E/N - LR at 125mL/hr x 2L, will replete Mg with 2gm IV, Renal diet for now Ppx - SCDs Code - DNR/DNI per discussion with patient Dispo - Admit to medical with telemetry Admission HPI Per Admitting Provider Alex Lomeli is an 88yo male with history of DM presenting with jaw pain. Patient reports 3 days of lower jaw pain - no trauma or recently broken teeth. He has not been eating much secondary to jaw pain. He reports decreased urine output. He has been taking 4 tablets of Ibuprofen daily for the last several days. In the ER patient is afebrile, HD stable, NAD ER Course: NSS x 1L Discharge Plan Discharge Items Patient Disposition: Home - Self-Care Reason For Visit: CARLY Discharge Diagnosis: Acute kidney injury Dental pain Condition on Discharge: Good Activity: Resume your previous activity Non-emergency contact: Primary Care Provider Call non-emergency contact if: you have any medication questions, your symptoms worsen, your pain is not controlled and you have a fever Follow-up/Referrals: Martha Salazar PA-C [Primary Care Provider] - 01/06/24 11:10 am Diet: Regular Diet Texture: Easy to Chew Addtl Attending Provider Instructions: You were admitted with some kidney failure which is now much improved after receiving IV fluids for hydration. You were likely dehydrated from not eating/drinking much due to your tooth pain. You should NOT TAKE any ibuprofen/Advil/Motrin/Aleve as these medications can affect the kidneys. You CAN TAKE Tylenol (acetaminophen) as needed for pain. You should continue to HOLD your lisinopril and your triamterene-HCT until seen by your PCP to recheck your blood work for your kidney function. Your PCP can tell you if it is ok to resume taking this medication again. You were seen by the Oral Surgeon who suggested the following: "Ed has very worn dentition but good gum support and bone. His bone is very thick and if extraction can be avoided that would be his best option. His pain and sensitivity is intermittent, no pain on palpation, no swelling or abscess noted. The posterior teeth look to be able to be saved with new restorations the 22 and 27 will need possible root canal and dome filling for an overdenture. I suggested he call Dr Camp in [place] for a second opinion regarding his options." Pending Studies at Discharge: No Stand-Alone Forms: [facility], Smoking Cessation Medications and DC Order Prescriptions: New amoxicillin-pot clavulanate 875-125 mg Tablet 1 tab PO BIDM Qty: 13 0RF Continued atorvastatin 40 mg tablet 40 mg PO DAILY acetaminophen [Tylenol] 325 mg Tablet 650 mg PO DIRECTED PRN (Reason: PAIN/FEVER) gemfibrozil 600 mg tablet 600 mg PO BID metformin 1,000 mg tablet 1,000 mg PO BID metoprolol succinate 25 mg tablet extended release 24 hr 25 mg PO DAILY glyburide 1.25 mg tablet 1.25 mg PO BID fluticasone propionate [Flonase] 50 mcg/actuation [place],Suspension 2 spray INTRANASAL DAILY Rx Instructions: administer into each nostril Held lisinopril 20 mg tablet 20 mg PO DAILY Hold Instructions: Resume on 01/05/24. Hold until your PCP tells you it s ok to resume this medication triamterene-hydrochlorothiazid 37.5-25 mg tablet 0.5 tab PO DAILY Hold Instructions: Resume on 01/05/24. Hold until your PCP tells you it s ok to resume this medication Discharge Orders: Discharge Order (Routine); Ordered 12/29/23 Ordered By: Jocelyn Tracey Admission Data Admit Date/Time: 12/28/23 19:48 Attending Provider: Jocelyn Tracey Admit Provider: Lorelei Min Primary Care Provider: Martha Salazar Other Providers: Lorelei Min; Aime Brown Other Interventions: Discharge Summary Assessment (RN) Last Done: 12/29/23 17:48 Hospital Stay Data Consultations 12/28/23 19:20 ED Decision to Admit Stat 12/29/23 12:59 Consult Oromaxillofacial Surgery Routine Diagnostic Imagining Performed 12/28/23 18:50 CT abd pelvis wo con Stat 12/28/23 22:35 CT face [CT facial bones wo con] Routine Pending Results Patient Have Any Pending Studies at Discharge: No Discharge Instructions Given to Patient (Per Discharging Provider) You were admitted with some kidney failure which is now much improved after receiving IV fluids for hydration. You were likely dehydrated from not eating/drinking much due to your tooth pain. You should NOT TAKE any ibuprofen/Advil/Motrin/Aleve as these medications can affect the kidneys. You CAN TAKE Tylenol (acetaminophen) as needed for pain. You should continue to HOLD your lisinopril and your triamterene-HCT until seen by your PCP to recheck your blood work for your kidney function. Your PCP can tell you if it is ok to resume taking this medication again. You were seen by the Oral Surgeon who suggested the following: "Ed has very worn dentition but good gum support and bone. His bone is very thick and if extraction can be avoided that would be his best option. His pain and sensitivity is intermittent, no pain on palpation, no swelling or abscess noted. The posterior teeth look to be able to be saved with new restorations the 22 and 27 will need possible root canal and dome filling for an overdenture. I suggested he call Dr Camp in [place] for a second opinion regarding his options." Coding Diagnoses CARLY (acute kidney injury) N17.9 Jaw pain R68.84
--- NOTE | 2023-12-29 21:38 | Electrocardiogram Report ---
Test Reason : Blood Pressure : */* mmHG Vent. Rate : 85 BPM Atrial Rate : 85 BPM P-R Int : 152 ms QRS Dur : 74 ms QT Int : 354 ms P-R-T Axes : * -8 44 degrees QTcB Int : 421 ms Sinus rhythm with Premature supraventricular complexes Otherwise normal ECG No previous ECGs available Confirmed by Eduardo Millan ([id number]) on 12/29/2023 9:37:45 PM Referred By: REFERRED SELF Confirmed By: Eduardo Millan
== END 2023-12-29 18:22 | disposition home or self-care (01) ==
LOC: ED 17:12 → EDINP 17:12 → SUATTDRO 19:48 → 2N 22:08